=== PATIENT | female | born 1995 | race Caucasian/White ===

== ENCOUNTER 2016-05-18 11:14 | Emergency (ER) | payer OTHER | END 2016-05-18 12:13 | disposition home or self-care (01) | LOC: ER1 11:14 | DX: H10.9 Unspecified conjunctivitis (principal); F17.210 Nicotine dependence, cigarettes, uncomplicated | CPT/HCPCS: 99282 ==

== ENCOUNTER → 2020-10-03 | Outpatient (CLI) | payer OTHER ==
[~2020-10-03] MED LIST: DELSYM30 MG/5 ML PO; FLEXERIL 10 MG10 MG PO; KEFLEX500 MG PO; PREDNISONE 50 M50 MG PO; WART REMOVER TP
== END ==
LOC: EXRD 11:02
DX: M25.531 Pain in right wrist (principal)
CPT/HCPCS: 73110